=== PATIENT | male | born 1990 | race Caucasian/White ===

== ENCOUNTER 2020-04-14 13:33 | Emergency (ER) | payer OTHER, SELFPAY ==
--- NOTE | ~2020-04-14 | CT_ITS ---
EXAMINATION: CT abdomen pelvis wo con DATE: 04/14/2020 14:22 INDICATION: Left flank pain TECHNIQUE: Computed tomography (CT) of the abdomen and pelvis was performed without intravenous contr ast. The dose-length product (DLP) was 469.92 mGy-cm. Automated exposure control and iterative recons truction technique were employed. COMPARISON: 11/17/2017 FINDINGS: The lung bases are clear. The heart size is normal. The liver, spleen, pancreas, gallbladde r, and adrenal glands are normal. The right kidney is unremarkable. There is a 2 mm stone at the left ureterovesicular junction which causes mild left hydroureteronephrosis. No pathologically enlarged a bdominal or pelvic lymph nodes are identified. There is no free intraperitoneal gas or evidence of ashlyn wel obstruction. The appendix is normal. A moderate volume of colonic stool is present. IMPRESSION: 1. 2 mm stone at the left ureterovesicular junction causing mild left hydroureteronephrosis. Reviewed, dictated and finalized at location A. SERVICE TECHNICIAN IMPRESSION: 1. 2 mm stone at the left ureterovesicular junction causing mild left hydrouret eronephrosis.
--- NOTE | ~2020-04-14 | XR_ITS ---
EXAMINATION: XR abdomen/kub 1V INDICATION: Left flank pain TECHNIQUE: Supine views of the abdomen were obtained on 2 radiographs. COMPARISON: CT from today FINDINGS: The known left ureterovesicular junction stone identified on CT is not definitely seen. The bowel gas pattern is normal. There are no dilated loops of bowel. A moderate volume of colonic stool is present. IMPRESSION: 1. Known left ureterovesicular junction stone not seen. Reviewed, dictated and finalized at location A. R COVERER
[2020-04-14 13:39] VITALS: BP 122/66; PULSE 61; RESP 18; TEMP 36.8; O2SAT 100
[2020-04-14 13:58] LABS: Basophils Percent Auto 0.5 % (0.2-1.2); Eosinophils Absolute Auto 0.1 K/mm3 (0-0.3); Eosinophils Percent Auto 1.2 % (0-4.4); Hematocrit 47.1 % (42.0-52.0); Hemoglobin 15.6 g/dL (14.0-18.0); Immature Granulocyte Absolute 0.01 K/mm3 (0.00-0.031); Immature Granulocyte Percent A 0.1 % (0-0.5); Lymphocytes Absolute Auto 3.32 K/mm3 (0.9-3.2); Lymphocytes Percent Auto 44.8 % (18.3-44.2); Mean Corpuscular HGB Conc 33.1 g/dl (32-36); Mean Corpuscular Hemoglobin 30.1 pg (26-34); Mean Corpuscular Volume 90.8 fl (80-100); Mean Platelet Volume 10.1 fl (7.4-10.4); Monocytes Absolute Auto 0.7 K/mm3 (0.1-0.6); Monocytes Percent Auto 8.9 % (2.6-8.5); Neutrophils Absolute Auto 3.3 K/mm3 (1.3-6.7); Neutrophils Percent Auto 44.5 % (45.5-73.1); Platelet Count Result 292 k/mm3 (150-375); Red Blood Count 5.19 M/mm3 (4.6-6.20); Red Cell Distribution Width 12.1 % (11.5-14.5); White Blood Count 7.4 K/mm3 (4.5-10.0)
[2020-04-14 14:04] LABS: Add Urine Microscopic? YES; Appearance Urine Clear (Clear); Bilirubin Urine Negative (Negative); Blood Urine 3+ (Negative); Calcium Oxalate Crystals Urine Many /hpf; Color Urine Yellow (Yellow); Glucose Urine UA Negative (Negative); Ketones Urine Negative (Negative); Leukocyte Esterase Ur Negative LEU/UL (Negative); Mucus Urine Few /lpf; Nitrate Urine Negative (Negative); Protein Urine 1+ mg/dL (Negative); RBC Urine >75 /hpf (0-2); Specific Grav Ur 1.026 (1.001-1.035); Squamous Epithelial Cell Urine Rare /hpf (Few); WBC Urine 0-3 /hpf
--- NOTE | 2020-04-14 14:06 | PC.NURSE ---
Addendum entered by Heather Myles RN 04/14/20 21:26: patient here in ED room 19 with LLQ pain. see triage notes. tech here to take patient for CT and KUB. pt aware he does have meds ordered for when he returns to ED. Original Note: patient to xray via wheelchair
--- NOTE | 2020-04-14 14:10 | PC.NURSE ---
patient brought back to ED room 19 with flank pain. see triage notes. patient had SL inserted in triage area. labs have been sent. urine specimen collected and sent. alert. oriented. diaphoretic and nauseated with pain. assessments documented. waiting for further orders from provider. patient updated on plan at this time. call light in reach.
--- NOTE | 2020-04-14 14:12 | PC.NURSE ---
patient brought back to ED room 19 with c/o left lower abdomen pain r/t his groin area. see triage notes. states pain just started this am. patient appears uncomfortable. patient is diaphoretic at this time. assessments documented. SL inserted in triage. labs already sent. urine specimen sent. waiting for further orders from provider.
[2020-04-14 14:24] LABS: Anion Gap 8 mmol/L (8-16); Blood Urea Nitrogen 15 mg/dL (9-20); Calcium 9.2 mg/dL (8.4-10.2); Carbon Dioxide 30 mmol/L (22-30); Chloride 103 mmol/L (98-107); Estimated CRCL calculation 88 ml/min; Estimated Glomerular Filt Rate > 60; Glucose 115 mg/dL (75-110); Potassium 4.3 mmol/L (3.4-5.0); Sodium 141 mmol/L (137-145)
--- NOTE | 2020-04-14 14:24 | ED.GENADULT ---
HPI - General Adult General Chief complaint: Back Pain/Injury Stated complaint: Pain in left side into ABD Time Seen by Provider: 04/14/20 13:55 Source: patient Mode of arrival: ambulatory Limitations: no limitations History of Present Illness HPI narrative: Patient is a 29-year-old male with acute onset of left flank pain began this morning with chills sweats and nausea denies similar occurrence in the past presents in acute uncomfortable state but in no distress has not taken anything for his symptoms Related Data Home Medications Medication Instructions Recorded Confirmed bupropion HCl mg PO 04/14/20 Allergies Allergy/AdvReac Type Severity Reaction Status Date / Time No Known Allergies Allergy Verified 04/14/20 13:41 Review of Systems Review of Systems: All systems reviewed & are unremarkable except as noted in HPI and below PMFSH Social History Social History (Updated 04/14/20 @ 14:24 by Torres Garcia PA-C) Smokeless tobacco user: chewing tobacco Exam Narrative: Exam Narrative: GENERAL: Ill-appearing, well-nourished, uncomfortable and in no acute distress. HEAD: Normocephalic, atraumatic. EYES: PERRLA and EOMI. ENT: Nares clear, no rhinorrhea or epistaxis. Mucous membranes moist. CHEST: Clear to auscultation. No respiratory distress. No wheezes rales or rhonchi HEART: Regular rate and rhythm. No murmur heard. Normal peripheral pulses. ABDOMEN: Soft, nontender, nondistended EXTREMITIES: Normal range of motion. No edema. SKIN: Warm, dry, no rash. NEURO: No focal deficits. Alert and oriented x3. PSYCH: Normal mood and affect. Course Course Emergency Course: Patient in the room at this time resting comfortably resolution of pain diagnosed with urolithiasis medicated will be discharged home provided with reasons to return Vital Signs Vital signs: Vital Signs Temperature 98.2 F 04/14/20 13:39 Pulse Rate 61 04/14/20 13:39 Respiratory Rate 18 04/14/20 13:39 Blood Pressure 122/66 04/14/20 13:39 Pulse Oximetry 100 04/14/20 13:39 Temperature 98.2 F 04/14/20 13:39 Pulse Rate 61 04/14/20 13:39 Respiratory Rate 18 04/14/20 13:39 Blood Pressure 122/66 04/14/20 13:39 Pulse Oximetry 100 04/14/20 13:39 Medical Decision Making MDM Narrative Medical decision making narrative: Patient with urolithiasis with improved condition 2 mm stone felt appropriate for outpatient reevaluation Vital Signs Vital Signs: Vital Signs Temperature 98.2 F 04/14/20 13:39 Pulse Rate 61 04/14/20 13:39 Respiratory Rate 18 04/14/20 13:39 Blood Pressure 122/66 04/14/20 13:39 Pulse Oximetry 100 04/14/20 13:39 Temperature 98.2 F 04/14/20 13:39 Pulse Rate 61 04/14/20 13:39 Respiratory Rate 18 04/14/20 13:39 Blood Pressure 122/66 04/14/20 13:39 Pulse Oximetry 100 04/14/20 13:39 Lab Data Result diagrams: 04/14/20 13:45 04/14/20 13:45 Labs: Lab Results 04/14/20 04/14/20 04/14/20 Range/Units 13:45 13:45 13:45 WBC 7.4 (4.5-10.0) K/mm3 RBC 5.19 (4.6-6.20) M/mm3 Hgb 15.6 (14.0-18.0) g/dL Hct 47.1 (42.0-52.0) % MCV 90.8 (80-100) fl MCH 30.1 (26-34) pg MCHC 33.1 (32-36) g/dl RDW 12.1 (11.5-14.5) % Plt Count 292 (150-375) k/mm3 MPV 10.1 (7.4-10.4) fl Immature Gran % (Auto) 0.1 (0-0.5) % Neut % (Auto) 44.5 L (45.5-73.1) % Lymph % (Auto) 44.8 H (18.3-44.2) % [place] % (Auto) 8.9 H (2.6-8.5) % Eos % (Auto) 1.2 (0-4.4) % Baso % (Auto) 0.5 (0.2-1.2) % Lymph # (Auto) 3.32 H (0.9-3.2) K/mm3 [place]ick # (Auto) 0.7 H (0.1-0.6) K/mm3 Eos # (Auto) 0.1 (0-0.3) K/mm3 Baso # (Auto) 0.0 (0.0-0.1) K/mm3 Abs Immat Gran (auto) 0.01 (0.00-0.031) K/mm3 Absolute Neuts (auto) 3.3 (1.3-6.7) K/mm3 Absolute Nucleated RBC 0.0 (0.0-0.012) K/mm3 Nucleated RBC % 0.0 (0.0-0.2) % Sodium 141 (137-145) mmol/L Potassium 4.3 (3.4
[2020-04-14] MEDS: SODIUM CHLORIDE 0.9% IV 1,000 ML 999 ML IV CONT (14:25)
[2020-04-14] MEDS: ONDANSETRON INJ 4 MG/2 ML VIAL IV PUSH (14:33)
[2020-04-14] MEDS: KETOROLAC 30 MG/ML VIAL (*BKC) IV PUSH (14:51)
--- NOTE | 2020-04-14 14:55 | PC.NURSE ---
patient medicated. aware of current treatment plan and expected wait time.
--- NOTE | 2020-04-14 15:15 | PC.NURSE ---
toradol given for pain. registration in room. patient appears more comfortable. color is better. BP is down. states he does feel better.
[2020-04-14 16:10] VITALS: BP 120/65; PULSE 77; RESP 18; TEMP 36.6; O2SAT 100
== END 2020-04-14 16:12 | disposition home or self-care (01) ==
PROVIDERS: Emergency Medicine; Emergency Provider Emergency Medicine; PCP Family Medicine
DX: N13.2 Hydronephrosis with renal and ureteral calculous obstruction (principal); F17.220 Nicotine dependence, chewing tobacco, uncomplicated
CPT/HCPCS: 36415; 74018; 74176; 80048; 81001; 85025; 96361; 96365; 96375; 99284; J0131; J1885; J2405; J7030

== ENCOUNTER 2022-05-01 17:43 | Emergency (ER) | payer OTHER, SELFPAY ==
[2022-05-01 17:58] VITALS: BP 126/66; PULSE 78; RESP 14; TEMP 36.9; O2SAT 99
[2022-05-01 18:33] LABS: Basophils Percent Auto 0.2 % (0.2-1.2); Hematocrit 43.5 % (42.0-52.0); Hemoglobin 14.5 g/dL (14.0-18.0); Immature Granulocyte Absolute 0.02 K/mm3 (0.00-0.031); Immature Granulocyte Percent A 0.2 % (0-0.5); Lymphocytes Absolute Auto 3.02 K/mm3 (0.9-3.2); Lymphocytes Percent Auto 35.7 % (18.3-44.2); Mean Corpuscular HGB Conc 33.3 g/dl (32-36); Mean Corpuscular Hemoglobin 30.1 pg (26-34); Mean Corpuscular Volume 90.4 fl (80-100); Mean Platelet Volume 10.4 fl (7.4-10.4); Monocytes Absolute Auto 0.9 K/mm3 (0.1-0.6); Neutrophils Absolute Auto 4.6 K/mm3 (1.3-6.7); Neutrophils Percent Auto 53.9 % (45.5-73.1); Platelet Count Result 281 k/mm3 (150-375); Red Blood Count 4.81 M/mm3 (4.6-6.20); Red Cell Distribution Width 12.3 % (11.5-14.5); White Blood Count 8.5 K/mm3 (4.5-10.0)
[2022-05-01 18:46] LABS: Alanine Aminotransferase 26 U/L (6-50); Albumin Level 4.5 g/dL (3.5-5.1); Alkaline Phosphatase 69 U/L (38-126); Anion Gap 9 mmol/L (8-16); Aspartate Amino Transferase 36 U/L (17-59); Bilirubin,Total 0.6 mg/dL (0.2-1.3); Blood Urea Nitrogen 18 mg/dL (9-20); Calcium 8.6 mg/dL (8.4-10.2); Carbon Dioxide 27 mmol/L (22-30); Chloride 99 mmol/L (98-107); Estimated CRCL calculation 96 ml/min; Estimated Glomerular Filt Rate > 60; Glucose 82 mg/dL (65-110); Lipase 88 U/L (23-300); Potassium 3.8 mmol/L (3.4-5.0); Sodium 135 mmol/L (137-145)
[2022-05-01] MEDS: MORPHINE SULFATE (*CRX) 4 MG/ML INJ IV PUSH (18:46)
[2022-05-01] MEDS: SODIUM CHLORIDE 0.9% IV 1,000 ML 999 ML IV CONT (18:46)
[2022-05-01 19:16] LABS: Influenza A QL RT-PCR Negative (Negative); Influenza B QL RT-PCR Negative (Negative); SARS-CoV-2 RNA PCR Negative
--- NOTE | 2022-05-01 19:48 | ED.ABDPAIN ---
HPI - Abdominal Pain General Chief Complaint: Abdominal Pain Stated Complaint: fevers, not feeling well Time Seen by Provider: 05/01/22 18:16 History of Present Illness HPI narrative: Patient is a 31-year-old male who presents ER with concerns of having fevers. Reports he has been having a high temperature and then will just go down on its own. He has had some aching in his left abdomen and back area. No urinary frequency urgency or dysuria. No diarrhea. No history of diverticulitis. No chest pain or chest pressure or productive cough. Related Data Home Medications Medication Instructions Recorded Confirmed bupropion HCl 300 mg 24 hr tablet, mg PO 04/14/20 extended release Allergies Allergy/AdvReac Type Severity Reaction Status Date / Time No Known Allergies Allergy Verified 05/01/22 17:43 Review of Systems Review of Systems: All systems reviewed & are unremarkable except as noted in HPI and below Constitutional: Constitutional: Denies chills, Reports fatigue and Reports fever(s) ENT: Denies nasal congestion and Denies sore throat Cardiovascular: Cardiovascular: Denies chest pain, Denies rapid heart rate and Denies radiating jaw, neck or arm pain Respiratory: Respiratory: Denies cough and Denies dyspnea Gastrointestinal: Gastrointestinal: Reports abdominal pain, Denies diarrhea, Denies nausea and Denies vomiting Genitourinary: Genitourinary: Denies hematuria, Denies dysuria and Denies urinary frequency PMFSH Past Medical History Medical History (Updated 05/01/22 @ 21:35 by Moses James MD) Healthy adult male Surgical History Surgical History (Updated 05/01/22 @ 19:52 by Moses James MD) No history of previous surgery Social History Social History (Updated 04/14/20 @ 14:24 by Torres Garcia, PA-C) Smokeless tobacco user: chewing tobacco Exam Narrative: GENERAL: Well-appearing, well-nourished, and in no acute distress. HEAD: Normocephalic, atraumatic. ENT: Mucous membranes moist. CHEST: Clear to auscultation. No respiratory distress. HEART: Regular rate and rhythm. Normal peripheral pulses. ABDOMEN: Soft, nontender, nondistended. EXTREMITIES: Normal range of motion. No edema. SKIN: Warm, dry, no rash. NEURO: Alert and oriented x3. PSYCH: Normal mood and affect. Course Vital Signs Vital signs: Vital Signs Temperature 98.5 F 05/01/22 17:58 Pulse Rate 78 05/01/22 17:58 Respiratory Rate 14 05/01/22 17:58 Blood Pressure 126/66 05/01/22 17:58 Pulse Oximetry 99 05/01/22 17:58 Oxygen Delivery Room Air 05/01/22 17:58 Temperature 98.5 F 05/01/22 17:58 Pulse Rate 78 05/01/22 21:08 Respiratory Rate 18 05/01/22 21:08 Blood Pressure 131/68 05/01/22 21:08 Pulse Oximetry 99 05/01/22 21:08 Oxygen Delivery Room Air 05/01/22 17:58 MDM - Abdominal Pain Lab Data 05/01/22 18:23 05/01/22 18:23 Labs: Lab Results 05/01/22 05/01/22 05/01/22 Range/Units 18:23 18:23 18:36 WBC 8.5 (4.5-10.0) K/mm3 RBC 4.81 (4.6-6.20) M/mm3 Hgb 14.5 (14.0-18.0) g/dL Hct 43.5 (42.0-52.0) % MCV 90.4 (80-100) fl MCH 30.1 (26-34) pg MCHC 33.3 (32-36) g/dl RDW 12.3 (11.5-14.5) % Plt Count 281 (150-375) k/mm3 MPV 10.4 (7.4-10.4) fl Immature Gran % (Auto) 0.2 (0-0.5) % Neut % (Auto) 53.9 (45.5-73.1) % Lymph % (Auto) 35.7 (18.3-44.2) % [place]aver % (Auto) 10.0 H (2.6-8.5) % Eos % (Auto) 0.0 (0-4.4) % Baso % (Auto) 0.2 (0.2-1.2) % Lymph # (Auto) 3.02 (0.9-3.2) K/mm3 [place] # (Auto) 0.9 H (0.1-0.6) K/mm3 Eos # (Auto) 0.0 (0-0.3) K/mm3 Baso # (Auto) 0.0 (0.0-0.1) K/mm3 Abs Immat Gran (auto) 0.02 (0.00-0.031) K/mm3 Absolute Neuts (auto) 4.6 (1.3-6.7) K/mm3 Absolute Nucleated RBC 0.0 (0.0-0.012) K/mm3 Nucleated RBC % 0.0 (0.0-0.2) % Sodium 135 L (137-145) mmol/L Potassium 3.8 (3.4-5.0) mmol/L Chl
[2022-05-01 20:19] LABS: Appearance Urine Clear (Clear); Bilirubin Urine Negative (Negative); Blood Urine Negative (Negative); Color Urine Yellow (Yellow); Glucose Urine UA Negative (Negative); Ketones Urine 1+ mg/dL (Negative); Leukocyte Esterase Ur Negative LEU/UL (Negative); Nitrate Urine Negative (Negative); Protein Urine Negative (Negative); Urobilinogen Urine 0.2 mg/dL (<2.0); pH Urine 5.5 (5.0-9.0)
[2022-05-01 20:22] LABS: Mucus Urine Rare /lpf; RBC Urine 0-2 /hpf (0-2); Squamous Epithelial Cell Urine Rare /hpf (Few); WBC Urine 0-3 /hpf
[2022-05-01 20:33] LABS: Add Urine Microscopic? YES
[2022-05-01 21:08] VITALS: BP 131/68; PULSE 78; RESP 18; O2SAT 99
== END 2022-05-01 21:51 | disposition home or self-care (01) ==
PROVIDERS: Physician Assistant; Emergency Provider Emergency Medicine; PCP Family Medicine
DX: B34.9 Viral infection, unspecified (principal); Z20.822 Contact with and (suspected) exposure to COVID-19; F17.220 Nicotine dependence, chewing tobacco, uncomplicated
CPT/HCPCS: 36415; 80053; 81001; 83690; 85025; 87636; 96361; 96374; 99284; J2270; J7030

== ENCOUNTER 2024-02-12 22:58 | Emergency (ER) | payer SELFPAY ==
--- NOTE | 2024-02-12 22:59 | ECG_ITS ---
Test Date: 2024-02-12 23:11:26 Measurements Intervals [place] Rate: 119 P: 62 GA: 163 QRS: 92 QRSD: 109 T: 29 QT: 329 QTc: 463 Interpretive Statements SINUS TACHYCARDIA WITH OCCASIONAL VENTRICULAR PREMATURE COMPLEXES RIGHT AXIS DEVIATION POSSIBLE LEFT ATRIAL ENLARGEMENT MINIMAL Q WAVES- ANTEROLATERAL LEADS CONSIDER INFERIOR INFARCT, AGE INDETERMINATE BASELINE ARTIFACT- AVR, AVL, AVF, V1-V3 ABNORMAL ECG No previous ECG available for comparison Electronically Signed On 02-13-2024 06:38:05 CDT by Jos Syed D.O.
[2024-02-12 23:06] VITALS: BP 135/72; PULSE 125; RESP 16; TEMP 36.4; O2SAT 97
[2024-02-12 23:29] LABS: Hematocrit 44.6 % (42.0-52.0); Mean Corpuscular HGB Conc 33.6 g/dl (32-36); Mean Corpuscular Hemoglobin 30.2 pg (26-34); Mean Corpuscular Volume 89.7 fl (80-100); Mean Platelet Volume 10.2 fl (7.4-10.4); Platelet Count Result 260 k/mm3 (150-375); Red Blood Count 4.97 M/mm3 (4.6-6.20); Red Cell Distribution Width 12.4 % (11.5-14.5); White Blood Count 5.4 K/mm3 (4.5-10.0)
[2024-02-12 23:42] LABS: Acetaminophen < 10 ug/mL (10-30); Alanine Aminotransferase 16 U/L (6-50); Albumin Level 4.4 g/dL (3.5-5.1); Alkaline Phosphatase 95 U/L (38-126); Anion Gap 13 mmol/L (4-12); Aspartate Amino Transferase 27 U/L (17-59); Bilirubin,Total 0.2 mg/dL (0.2-1.3); Blood Urea Nitrogen 8 mg/dL (9-20); Calcium 8.6 mg/dL (8.4-10.2); Carbon Dioxide 25 mmol/L (22-30); Chloride 114 mmol/L (98-107); Estimated CRCL calculation 78 ml/min; Estimated Glomerular Filt Rate > 60; Glucose 123 mg/dL (65-110); Potassium 4.3 mmol/L (3.4-5.0); Salicylate < 1.0 mg/dL (2-20); Sodium 152 mmol/L (137-145)
[2024-02-12 23:44] LABS: Ethanol 282 mg/dL (<10)
--- NOTE | 2024-02-13 00:01 | PC.NURSE ---
Pt mother wheeled pt to exit. Mother verbalized they were leaving and not stay. This rn informed them of her concerns due to SI statements. Mother and both verbalized understanding and that she was leaving with him, and would watch him and not leave him.
[2024-02-13 00:06] LABS: Influenza A QL RT-PCR Negative (Negative); Influenza B QL RT-PCR Negative (Negative); RSV RNA, RT-PCR Negative (Negative); SARS-CoV-2 RNA PCR Negative (Negative)
== END 2024-02-13 00:23 | disposition left against medical advice (07) ==
LOC: ANHED 02-13 00:11
PROVIDERS: Emergency Provider Emergency Medicine; PCP Family Medicine
DX: R06.02 Shortness of breath (principal); Z20.822 Contact with and (suspected) exposure to COVID-19
CPT/HCPCS: 36415; 80053; 80307; 84439; 84443; 85025; 87637; 93005; 99199